=== PATIENT | female | born 1990 | race American Indian/Alaskan Native ===

== ENCOUNTER 2020-12-03 13:33 | Emergency (ER) | payer SELFPAY ==
[2020-12-03 14:04] VITALS: BP 147/107
--- NOTE | 2020-12-03 15:48 | Event Note ---
ED Screening Note Date of service: 12/03/20 Time: 15:46 ED Screening Note: 29-year-old female patient presents to the emergency department with complaints of nausea and vaginal discharge. Noticed spotting last week. Unsure of last menstrual cycle. General: Awake, appropriately interactive, no acute distress. Neck: Supple. Full range of motion intact. Cardiovascular: Normal peripheral perfusion. Pulmonary: No respiratory distress. Patient is speaking normally without use of accessory muscles. Skin: No apparent rashes or lesions. Neurological: No facial asymmetry. Speech is clear. Follows commands. Patient is alert and oriented. Musculoskeletal: Moves all four extremities spontaneously with normal range of motion. Psych: Cooperative. Appropriate mood and affect. I have greeted and performed a focused rapid initial assessment of this patient. A comprehensive ED assessment and evaluation of the patient, analysis of all test results, and completion of the medical decision-making process will be conducted by additional ED providers. This initial assessment/diagnostic orders /clinical plan/treatment(s) is/are subject to change based on patients health status, clinical progression and re-assessment. Further treatment and workup at subsequent clinical provider's discretion. Patient/guardian urged not to elope from the ED as their condition may be serious if not clinically assessed and managed.
--- NOTE | 2020-12-03 17:05 | Emergency Department Report ---
ED Dysuria HPI - HPI Chief Complaint: Urogenital-Female Stated Complaint: PREG TEST Time Seen by Provider: 12/03/20 15:38 Duration: Today Severity: Mild Symptoms: Dysuria: No, Frequency: No, Suprapubic Pain: No, Flank Pain: No, Fever: No, Hematuria: No, Abdominal Pain: No, Previous UTI's: No Other History: Patient is a 29-year-old -[place] female comes to the ER today concerned that she is . She had her last menstrual 1 month ago. Home test few days ago was negative. She has no [facility] ESTATE APPRAISER. She is also complaining of clear discharge. Not concerned for STDs. ED Review of Systems ROS: Stated complaint: PREG TEST Other details as noted in HPI Comment: All other systems reviewed and negative ED Past Medical Hx - Past Medical History Previous Medical History?: Yes Hx Asthma: Yes - Surgical History Past Surgical History?: No - Social History Smoking Status: Current Every Day Smoker - Medications Home Medications: Home Medications Medication Instructions Recorded Confirmed Last Taken Type Ibuprofen [Motrin] 600 mg PO Q8H PRN #50 tablet 12/12/14 Unknown Rx cephALEXin [Keflex] 500 mg PO Q6H #40 capsule 12/12/14 Unknown Rx Ibuprofen [Motrin] 800 mg PO Q8H PRN #60 tablet 01/01/15 Unknown Rx traMADoL [Ultram] 50 mg PO Q6HR PRN #14 tablet 01/01/15 Unknown Rx Dysuria Exam - Exam General: Vital signs noted. No distress. Alert and acting appropriately. Exam: Yes Moist Mucous Membranes, No CVA Tenderness, No Abdominal Tenderness, No Rigidity or Guarding ED Course Vital Signs 12/03/20 14:01 Temperature 98.6 F Pulse Rate 82 Respiratory 20 Rate Blood Pressure 147/107 [Right] O2 Sat by Pulse 99 Oximetry ED Medical Decision Making - Medical Decision Making Vital Signs 12/03/20 14:01 Temperature 98.6 F Pulse Rate 82 Respiratory 20 Rate Blood Pressure 147/107 [Right] O2 Sat by Pulse 99 Oximetry Lab Results 12/03/20 Range/Units Unknown Urine Color Yellow (Yellow) Urine Turbidity Clear (Clear) Urine pH 6.0 (5.0-7.0) Ur Specific R[place] 1.020 (1.003-1.030) Urine Protein <15 mg/dl (Negative) mg/dL Urine Glucose (UA) Neg (Negative) mg/dL Urine Ketones Neg (Negative) mg/dL Urine Blood Neg (Negative) Urine Nitrite Neg (Negative) Urine Bilirubin Neg (Negative) Urine Urobilinogen < 2.0 (<2.0) mg/dL Ur Leukocyte Esterase Neg (Negative) Urine WBC (Auto) 1.0 (0.0-6.0) /HPF Urine RBC (Auto) 1.0 (0.0-6.0) /HPF U Epithel Cells (Auto) 4.0 (0-13.0) /HPF Urine HCG, Qual Negative (Negative) UA and U noted as ordered in triage. Given clear discharge and benign abdominal exam patient being discharged home with [facility] ESTATE APPRAISER follow-up. Patient is obese and has a mildly elevated blood pressure have instructed her to monitor her blood pressure daily and follow-up with primary care if it remains high. She verbalizes understanding. Patient verbalizes understanding of her discharge plan of care including follow- up - Differential Diagnosis Rule out /UTI Critical care attestation.: If time is entered above; I have spent that time in minutes in the direct care of this critically ill patient, excluding procedure time. ED Disposition Clinical Impression: test negative, Morbid obesity, Elevated blood pressure reading Disposition: DC-01 TO HOME OR SELFCARE Is pt being admited?: No Does the pt Need Aspirin: No Condition: Stable Additional Instructions: Monitor your blood pressure as we discussed. Follow-up with [facility]PRAIS[facility] and PCP. Referrals below. Referrals: BONY CORMIER MD [Staff Physician] - 3-5 Days YANG POP MD [Staff Physician] - 3-5 Days Time of Disposition: 17:34
[2020-12-03 17:25] LABS: Bilirubin,Urine NEG (Negative); Blood,Urine NEG (Negative); Color,Urine Yellow (Yellow); Protein,Urine <15 mg/dL mg/dL (Negative); Urobilinogen,Urine < 2.0 mg/dL (<2.0)
[2020-12-03 17:29] LABS: HCG Qualitative,Urine Negative (Negative)
== END 2020-12-03 17:49 | disposition home or self-care (01) ==
LOC: ED 13:33
DX: Z32.02 Encounter for pregnancy test, result negative (principal); E66.8 Other obesity; R03.0 Elevated blood-pressure reading, without diagnosis of hypertension; J45.909 Unspecified asthma, uncomplicated; F17.200 Nicotine dependence, unspecified, uncomplicated; R30.0 Dysuria; R35.0 Frequency of micturition; Z79.899 Other long term (current) drug therapy
CPT/HCPCS: 81001; 81025; 99283